=== PATIENT | female | born 1960 | race Asian ===

== ENCOUNTER 2016-04-20 14:28 | Observation (INO) | payer BC, OTHER ==
[2016-04-20] MEDS ORDERED: ASPIRIN 81 MG CHEWABLE TAB PO ONE (14:35)
[2016-04-20] MEDS ORDERED: ASPIRIN 81 MG CHEWABLE TAB ONE (14:37)
--- NOTE | 2016-04-20 14:44 | CPEKG ---
Heart Rate: 81 RR Interval: 741 P-R Interval: 160 QRSD Interval: 78 QT Interval: 376 QTC Interval: 437 P [place]: 43 QRS [place]: 7 T Wave [place]: 49 EKG Severity - NORMAL ECG - EKG Impression: SINUS RHYTHM Electronically Signed By: Kip Perez 21-Apr-2016 15:10:37
[2016-04-20] MEDS ORDERED: NS 500 ML IV ONE (14:57)
--- NOTE | 2016-04-20 14:57 | UCPHY ---
H & P Patient Type: New Chief Complaint Nursing Narrative: intermittent l sided chest pain since last night. no pain at present. denies sob. states bp was high last night HPI/ROS: HPI CHIEF COMPLAINT: Left-sided chest discomfort, hypertension, anxiety HISTORY OF PRESENT ILLNESS: This patient 56-year-old female, denies any significant medical history surgical history she presents to the urgent care with left-sided chest discomfort since around noon today. She tells me that for the past 2 weeks she has not felt well she is not specific about this, she tells me that today she went to work and she had some left-sided chest pain described as in uncomfortable feeling nonradiating. No nausea no diaphoresis. At times over the last 2 weeks she has felt flushed. She denies numbness or tingling, focal weakness, headache. She tells me that she usually runs a blood pressure around 110s however recently it has been in the 1 30s to 160 she is concerned about this.she does not take any daily medication except vitamin-D. She has had no cardiac history. She has not had a cardiac evaluation in years. She has no family history of cardiac disease except for mom and dad have hypertension. Past Medical History: No significant medical history Past Surgical History: no significant surgical Social History: denies daily use drugs alcohol tobacco products Family History: Hypertension mom and dad ROS REVIEW OF SYSTEMS: A comprehensive 10 point review of systems is otherwise negative aside from elements mentioned in the history of present illness. Exam Constitutional triage nursing summary reviewed, vital signs reviewed, awake/ alert. (170s Systolic BP) Eyes normal conjunctivae and sclera, EOMI, PERRLA. HENT normal inspection, atraumatic, moist mucus membranes, no epistaxis, neck supple/ no meningismus, no raccoon eyes. Respiratory clear to auscultation bilaterally, normal breath sounds, no respiratory distress, no wheezing. Cardiovascular rate normal, regular rhythm, no murmur, no edema, distal pulses normal. Gastrointestinal soft, non-tender, no rebound, no guarding, normal bowel sounds, no distension, no pulsatile mass. Genitourinary no CVA tenderness. Musculoskeletal no midline vertebral tenderness, full range of motion, no calf swelling, no tenderness of extremities, no meningismus, good pulses, neurovascularly intact. Skin pink, warm, & dry, no rash, skin atraumatic. Neurologic awake, alert and oriented x 3, AAOx3, moves all 4 extremities equally, motor intact, sensory intact, CN II-XII intact, normal cerebellar, normal vision, normal speech. Psychiatric normal mood/affect. Heme/Lymph/Immune no lymphadenopathy. Differential diagnosis includes but is not limited to: ACS, atypical chest pain , pneumothorax, pneumonia, pulmonary embolism, aortic dissection, congestive heart failure, tumor, musculoskeletal pain, esophageal pain, GERD, peptic ulcer disease, pancreatitis Medical Decision Making: Patient had an IV established obtain blood work including cardiac marker troponin, patient will need EKG given that she is having active left-sided chest discomfort she will receive nitroglycerin this will hopefully improve her blood pressure here and relieved her chest discomfort. She has already had full-dose aspirin. Re-evaluation: EKG interpretation by me on record in ixigo system. Impression time of EKG 1441, this is sinus rhythm rate of 81, there is no ST elevation, ST depression T-wave abnormalities. This is a unremarkable EKG. 1644: This patient initially came into the Urgent Care with chest pressure achiness in her left chest and hypertension resolved by nitroglycerin. Specifically her blood pressure improved nitroglycerin and so did her chest discomfort. There is no evidence that she is having acute coronary syndrome specifically she has a negative nonischemic EKG, normal troponin, unremarkable chest x-ray negative D-dimer. However given her age hypertension and characteristic of chest discomfort relieved by nitroglycerin I did explain to the patient she should stay overnight in the hospital for observation serial enzymes cardiac evaluation she is agreeable for this. She is agreeable being transferred to [facility]. 1648: Re-examination at this time this patient is resting comfortably. I spoke with Dr. France the hospitalist at [facility]. Patient agreeable for admission over there admission to [facility] was hemodynamically stable with no ongoing chest pain. Chest pain resolved after nitroglycerin. Most likely cause of hypertension is anxiety however given 56 years of age chest discomfort and hypertension she will need serial enzymes plus or minus stress test rule out. She is agreeable for this. Source: Patient - Medical/Surgical History Other PMH: denies - Family History Significant Family History: No pertinent family hx - Social History Smoking Status: Never smoked Constitutional: Initial Vital Signs Temperature (C) 36.9 C 04/20/16 14:30 Heart Rate 87 04/20/16 14:30 Respiratory Rate 16 04/20/16 14:30 Blood Pressure 170/108 H 04/20/16 14:30 O2 Sat (%) 96 04/20/16 14:30 O2 Delivery Mode Nasal Cannula O2 (L/minute) 2 Allergies/Adverse Reactions: No Known Allergies Allergy (Unverified 04/20/16 14:47) Home Medications: Medication Instructions Recorded NK [No Known Home Meds] 04/20/16 Medical Decision Making - Data Points Laboratory Results: Laboratory Results 04/20/16 14:53 04/20/16 14:53 04/20/16 04/20/16 04/20/16 15:15 14:53 14:53 WBC RBC Hgb Hct MCV MCH MCHC RDW Plt Count MPV Neut % (Auto) Lymph % (Auto) [place] % (Auto) Eos % (Auto) Baso % (Auto) Nucleat RBC Rel Count Absolute Neuts (auto) Absolute Lymphs (auto) Absolute Monos (auto) Absolute Eos (auto) Absolute Basos (auto) Absolute Nucleated RBC Immature Gran % Immature Gran # PT 12.0 SEC SEC (12.0-15.0) INR 0.91 (0.83-1.16) APTT 29.2 SEC SEC (23.0-38.0) D-Dimer < 0.27 ug/mLFEU ug/mLFEU (0.00-0.50) Sodium 142 mEq/L mEq/L (134-144) Potassium 3.7 mEq/L mEq/L (3.5-5.2) Chloride 101 mEq/L mEq/L (97-110) Carbon Dioxide 26 mEq/l mEq/l (22-31) Anion Gap 15 mEq/L mEq/L (8-16) BUN 13 mg/dL mg/dL (7-23) Creatinine 0.6 mg/dL mg/dL (0.6-1.0) Estimated GFR > 60 Glucose 90 mg/dL mg/dL (70-100) Calcium 9.6 mg/dL mg/dL (8.5-10.4) Magnesium 1.9 mg/dL mg/dL (1.6-2.3) Total Bilirubin 0.7 mg/dL mg/dL (0.1-1.4) Conjugated Bilirubin 0.3 mg/dL mg/dL (0.0-0.5) Unconjugated Bilirubin 0.4 mg/dL mg/dL (0.0-1.1) AST 34 IU/L IU/L (14-46) ALT 43 IU/L IU/L (9-52) Alkaline Phosphatase 103 IU/L IU/L (38-126) Troponin I < 0.012 ng/mL ng/mL (0-0.034) NT-Pro-B Natriuret Pep 20 pg/mL pg/mL (0-125) Total Protein 8.1 g/dL g/dL (6.3-8.2) Albumin 4.2 g/dL g/dL (3.5-5.0) Lipase 112.0 IU/L IU/L (23-300) 04/20/16 14:53 WBC 7.38 10^3/uL 10^3/uL (3.80-9.50) RBC 4.86 10^6/uL 10^6/uL (4.18-5.33) Hgb 15.2 g/dL g/dL (12.6-16.3) Hct 45.3 % % (38.0-47.0) MCV 93.2 fL fL (81.5-99.8) MCH 31.3 pg pg (27.9-34.1) MCHC 33.6 g/dL g/dL (32.4-36.7) RDW 12.5 % % (11.5-15.2) Plt Count 273 10^3/uL 10^3/uL (150-400) MPV 9.4 fL fL (8.7-11.7) Neut % (Auto) 60.4 % % (39.3-74.2) Lymph % (Auto) 31.0 % % (15.0-45.0) [place] % (Auto) 5.8 % % (4.5-13.0) Eos % (Auto) 1.8 % % (0.6-7.6) Baso % (Auto) 0.7 % % (0.3-1.7) Nucleat RBC Rel Count 0.0 % % (0.0-0.2) Absolute Neuts (auto) 4.46 10^3/uL 10^3/uL (1.70-6.50) Absolute Lymphs (auto) 2.29 10^3/uL 10^3/uL (1.00-3.00) Absolute Monos (auto) 0.43 10^3/uL 10^3/uL (0.30-0.80) Absolute Eos (auto) 0.13 10^3/uL 10^3/uL (0.03-0.40) Absolute Basos (auto) 0.05 10^3/uL 10^3/uL (0.02-0.10) Absolute Nucleated RBC 0.00 10^3/uL 10^3/uL (0-0.01) Immature Gran % 0.3 % % (0.0-1.1) Immature Gran # 0.02 10^3/uL 10^3/uL (0.00-0.10) PT INR APTT D-Dimer Sodium Potassium Chloride Carbon Dioxide Anion Gap BUN Creatinine Estimated GFR Glucose Calcium Magnesium Total Bilirubin Conjugated Bilirubin Unconjugated Bilirubin AST ALT Alkaline Phosphatase Troponin I NT-Pro-B Natriuret Pep Total Protein Albumin Lipase Medications Given: Discontinued Medications Aspirin (Aspirin) 324 mg PO EDNOW ONE Stop: 04/20/16 14:36 Last Admin: 04/20/16 14:35 Dose: 324 mg Sodium Chloride (Ns) 500 mls @ 0 mls/hr IV ONCE ONE PRN Reason: As Directed Stop: 04/20/16 14:58 Last Admin: 04/20/16 15:10 Dose: 500 mls Nitroglycerin (Nitrostat) 0.4 mg SL EDNOW ONE Stop: 04/20/16 15:06 Last Admin: 04/20/16 15:10 Dose: 0.4 mg Departure - Departure Disposition: [facility] Acute Clinical Impression: Chest pain Qualifiers: Chest pain type: other chest pain Qualified Code(s): R07.89 - Other chest pain Hypertension Qualifiers: Hypertension type: unspecified secondary hypertension Qualified Code(s): I15.9 - Secondary hypertension, unspecified Condition: Fair Referrals: NONE,PER PT [Other] - As per Instructions - PQRS PQRS Measurement: n/a
[2016-04-20 15:04] LABS: % IMMATURE GRANULYOCYTES 0.3 % (0.0-1.1); ABSOLUTE IMMATURE GRANULOCYTES 0.02 10^3/uL (0.00-0.10); ADD DIFF? NO; ADD MORPH? NO; ADD SCAN? NO; ATYPICAL LYMPHOCYTE FLAG 0 (0-99); FRAGMENT RBC FLAG 0 (0-99); HEMATOCRIT 45.3 % (38.0-47.0); HEMOGLOBIN 15.2 g/dL (12.6-16.3); LEFT SHIFT FLG 0 (0-99); LIPEMIA HEMOLYSIS FLAG 80 (0-99); MEAN CELL HEMOGLOBIN 31.3 pg (27.9-34.1); MEAN CELL HEMOGLOBIN CONCENTR. 33.6 g/dL (32.4-36.7); MEAN CELL VOLUME 93.2 fL (81.5-99.8); MEAN PLATELET VOLUME 9.4 fL (8.7-11.7); PLATELET CLUMPS FLAG 10 (0-99); PLATELET COUNT 273 10^3/uL (150-400); RED BLOOD CELL COUNT 4.86 10^6/uL (4.18-5.33); RED CELL DISTRIBUTION WIDTH 12.5 % (11.5-15.2)
[2016-04-20] MEDS ORDERED: NITROGLYCERIN 0.4 MG BTL SL ONE (15:05)
[2016-04-20 15:19] LABS: INR 0.91 (0.83-1.16)
[2016-04-20 15:20] LABS: APTT 29.2 SEC (23.0-38.0)
[2016-04-20 15:26] LABS: ALANINE AMINOTRANSFERASE 43 IU/L (9-52); ALBUMIN 4.2 g/dL (3.5-5.0); ALKALINE PHOSPHATASE 103 IU/L (38-126); ANION GAP 15 mEq/L (8-16); ASPARTATE AMINOTRANSFERASE 34 IU/L (14-46); BILIRUBIN,TOTAL 0.7 mg/dL (0.1-1.4); BILIRUBIN-CONJUGATED 0.3 mg/dL (0.0-0.5); BILIRUBIN-UNCONJUGATED 0.4 mg/dL (0.0-1.1); CALCIUM 9.6 mg/dL (8.5-10.4); CARBON DIOXIDE 26 mEq/l (22-31); CHLORIDE 101 mEq/L (97-110); CREATININE 0.6 mg/dL (0.6-1.0); GLOMERULAR FILTRATION RATE > 60; GLUCOSE 90 mg/dL (70-100); MAGNESIUM 1.9 mg/dL (1.6-2.3); POTASSIUM 3.7 mEq/L (3.5-5.2); SODIUM 142 mEq/L (134-144); TOTAL PROTEIN 8.1 g/dL (6.3-8.2)
[2016-04-20 17:34] LABS: COLOR YELLOW; LEUKOCYTE ESTERASE,URINE NEGATIVE (NEGATIVE); NITRITE,URINE NEGATIVE (NEGATIVE)
[2016-04-20 17:55] LABS: MUCUS TRACE /lpf (NONE-1+); RBC,URINE 0-1 /hpf (0-3); WBC,URINE NONE SEEN /hpf (0-3)
[2016-04-20] MEDS ORDERED: KETOROLAC 30 MG/1 ML SDV IVP PRN (19:01)
[2016-04-20] MEDS ORDERED: ACETAMINOPHEN 325 MG TAB PO PRN (19:01)
[2016-04-20] MEDS ORDERED: ONDANSETRON 4 MG/2 ML VIAL IVP PRN (19:01)
[2016-04-20] MEDS ORDERED: hydrALAZINE 20 MG/ML VIAL IVP PRN (19:51)
--- NOTE | 2016-04-20 20:25 | GHP ---
[f rep st] HISTORY AND PHYSICAL DATE OF ADMISSION: 04/20/2016 CHIEF COMPLAINT: Chest pain. HISTORY OF PRESENT ILLNESS: The patient is a 56-year-old female who started having left-sided chest pain last night. It has come and gone since then and she is currently having 2/10 chest pain on the left. It is nonexertional and nonpleuritic. She describes a pressure-like pain that does not radiate. She is clutching the left side of her chest. There has been no shortness of breath. She has never had pain like this before. PAST MEDICAL HISTORY: Heart murmur. MEDICATIONS: None. ALLERGIES: No known drug allergies. SOCIAL HISTORY: No smoking. No alcohol. She lives with her and 2 children. She is originally from [place] and has been in the [place] for 30 years. 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 REVIEW OF SYSTEMS: Complete review of systems obtained. Review of systems is negative on constitutional, HEENT, GI, pulmonary, cardiovascular, , hematology , skin, muscular endocrine and psychiatric, except for positives as noted in HPI. FAMILY HISTORY: Both her parents are alive and on medications for high blood pressure. PHYSICAL EXAMINATION: GENERAL: Well-developed, well-nourished female, in no acute distress. VITAL SIGNS: Temperature is 36.9, pulse 82, blood pressure 150 /95, saturating 96% on room air. EYES: Normal conjunctivae. Pupils react to light. ENT: Normal ears, nose. Hearing intact. Normal lips and teeth. Oropharynx moist. NECK: Trachea midline. No thyromegaly. CHEST: Normal effort. Lungs are clear to auscultation bilaterally. CARDIOVASCULAR: Regular rate and rhythm. I do not hear a prominent murmur. No lower extremity edema. ABDOMEN: Soft, nontender. No hepatosplenomegaly. SKIN: Warm, dry, intact. No rash. MUSCULOSKELETAL: No cyanosis or clubbing. Strength 5/5 upper and lower extremities. NEUROLOGIC: Cranial nerves intact. Normal sensation to light touch. PSYCH: Alert and oriented x3. Normal mood and affect. Normal judgment and insight. Normal memory. LABORATORY DATA: White count 7.38, hematocrit 45.3, platelets 273. Sodium 142 , potassium 3.7, chloride 101, bicarb 26, BUN 13, creatinine 0.6, glucose of 90. LFTs are negative. Troponins negative. INR 0.9. EKG reviewed by me. My personal interpretation is normal sinus rhythm, no ST-T wave changes. Chest x-ray is negative. I spoke with Dr. Kip Perez, emergency room physician, who saw her and was concerned regarding her escalating hypertension and chest pain, that she needed further observation and workup. ASSESSMENT/PLAN: 1. Chest pain. We do need to rule out ischemia given her worsening hypertensive presentation. We will follow serial troponins and EKGs. We will admit to the [facility]. We will start her on a daily aspirin and check a lipid panel. We will order stress testing for tomorrow morning. 2. Hypertension. She does describe borderline hypertension as an outpatient, although had never previously been on medications. We will observe blood pressure readings throughout the evening and consider starting oral antihypertensive medications depending on results. 3. Deep venous thrombosis prophylaxis. She should be started on pharmacologic prophylaxis if she has prolonged hospitalization. CODE STATUS: Full. ADMISSION STATUS: We will admit to observation as I anticipate discharge tomorrow if cardiac workup is negative. /[id number]/MODL MTDD
[2016-04-21 07:20] LABS: CHOLESTEROL 230 mg/dL (140-220); CHOLESTEROL/HDL RATIO 4.79 RATIO (1.00-4.44); HIGH DENSITY LIPOPROTEIN 48 mg/dL (40-85); LDL/HDL RATIO 2.73 RATIO (1.00-3.22); LOW DENSITY LIPOPROTEIN 131 mg/dL (80-100); NON-HIGH DENSITY LIPOPROTEIN 182 mg/dL (90-129); TRIGLYCERIDE 257 mg/dL (35-135); VERY LOW DENSITY LIPOPROTEINS 51 mg/dL (8-25)
[2016-04-21 07:21] VITALS: BP 136/82; PULSE 69; RESP 16; TEMP 98; O2SAT 94
[2016-04-21 07:32] LABS: TROPONIN I < 0.012 ng/mL (0-0.034)
--- NOTE | 2016-04-21 08:58 | CPEKG ---
Heart Rate: 75 RR Interval: 800 P-R Interval: 172 QRSD Interval: 72 QT Interval: 408 QTC Interval: 456 P [place]: 49 QRS [place]: 17 T Wave [place]: 54 EKG Severity - NORMAL ECG - EKG Impression: SINUS RHYTHM Electronically Signed By: Kip Perez 21-Apr-2016 15:10:37
[2016-04-21] MEDS ORDERED: ASPIRIN 325 MG TAB PO SCH (09:00)
--- NOTE | 2016-04-21 13:01 | CPIP ---
[f rep st] INVASIVE CARDIAC PROCEDURE INDICATION: Chest discomfort. The patient has been on the [facility], was admitted with chest pain. Her troponins were negative and EKG s were unremarkable. She has agreed to do a regular stress test. FINDINGS: She walked for 7 minutes and 47 seconds on a standard Al protocol. The test was stopp ed for fatigue. She had reached 90% of maximum predicted heart rate. Her hemodynamics are attached. Her baseline EKG had no diagnostic abnormalities and at peak exercise, she had no ST changes of sign ificance. She had no arrhythmias. This a negative stress test for significant EKG or clinical evidence of ischemia at a good workload. Her Muro treadmill score would be 7 indicating a low probability of cardiovascular event over the ne xt 3 years. I discussed with the patient very carefully that we do not know the cause of her discomfort and if i t continues, she needs to follow up with her primary care doctor. I also told her that if she has crescendo pain in the next several days, that stress tests can exace rbate coronary disease or coronary spasm and if the pain comes back and is significant, she needs to come back to the emergency room and be evaluated quickly to see if it is an exacerbation of her cur rent condition that involves the coronary anatomy. For now, she has had absolutely no pain with exercise. She feels well and wants to be going home. I [facility]. /[id number]/MODL
--- NOTE | 2016-04-21 14:43 | GDS ---
[f rep st] DISCHARGE SUMMARY NEW AND ACUTE DIAGNOSES ON THIS ADMISSION: 1. Chest pain, noncardiac in origin, negative stress test. 2. Hypertension, borderline, treated at discharge. CONSULTATIONS: Cardiology. PROCEDURE: Exercise stress test on Al protocol: She had a Angelina treadmill score of 7 and a nega tive stress test. She had no arrhythmias and no EKG diagnostic abnormalities at peak exercise, and she had no ST changes of significance. HISTORY: This is a 56-year-old female, who presented with complaint of chest pain. Serial troponin s were negative. D-dimer was negative. Triglyceride/cholesterol risk factor and her LDL cholestero l were all elevated. Her HDL cholesterol was 48. She underwent an exercise stress test, which was entirely negative. Her blood pressure was very mildly elevated intermittently, and the patient requ ested treatment for her blood pressure. DISCHARGE MEDICATIONS: Metoprolol 12.5 mg p.o. b.i.d. PLAN: The patient will be discharged to see her own physician, Dr. Tamara Downing. Note on discharge that the patient's blood pressure has been treated for a short-course with a beta- cristina. Her cholesterol is elevated, but no treatment was started. This treatment has been left t o her PCP, Dr. Tamara Downing. The patient was instructed if she has repeat episodes of chest pain to return to the emergency depar tment. TIME: This discharge required 40 minutes, greater than 50% to corrections counselor and coordinate care. Copy requested to: Tamara Downing MD /[id number]/MODL
== END 2016-04-21 14:36 | disposition home or self-care (01) ==
LOC: CED 14:28 → CEDHOLD 16:47 → F1N 18:55
PROVIDERS: ADMIT Internal Medicine; ATTEND Internal Medicine Pulmonary Disease
PROC: 4A12XM4 Monitoring of Cardiac Stress, External Approach (ICD-10-PCS; principal; 2016-04-21)
DX: R07.9 Chest pain, unspecified (principal); I10 Essential (primary) hypertension; E78.1 Pure hyperglyceridemia
CPT/HCPCS: 71010; 93005; 93017; 99204; G0378; 80048-PO; 80076-PO; 81003-PO; 81015-PO; 83690-PO; 83735-PO; 83880-PO; 84484-PO; 85025-PO; 85378-PO; 85610-PO; 85730-PO; G0463-PO